=== PATIENT | female | born 2000 | race Caucasian/White ===

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

== ENCOUNTER 2018-06-04 23:12 | Emergency (ER) | payer OTHER ==
--- OUTSIDE RECORDS SUMMARY | 2018-06-04 23:14 | XMS REPORT ---
:2000 [facility] Address [address] [place] [address] Dr. Javier [address] [place] [id number] Care Team Providers Name Role Phone Unavailable Unavailable Unavailable Problems This patient has no known problems. Allergies, Adverse Reactions, Alerts This patient has no known allergies or adverse reactions. Medications This patient has no known medications.
--- OUTSIDE RECORDS SUMMARY | 2018-06-04 23:14 | XMS REPORT | Clinical Summary ---
:2000 Author Organization [employer] Address [address] [place] [id number] Care Team Providers Name Role Phone Asked, No Pcp Primary Care Provider Unavailable Allergies No Known Allergies Medications No known medications Active Problems Problem Noted Date Unspecified mood (affective) disorder 08/03/2016 Alcohol use disorder 08/03/2016 Cannabis use disorder, mild, abuse 08/03/2016 Family History Medical History Relation Name Comments [...] Assigned at Date Recorded Not on file Job Start Date Occupation Industry Not on file Not on file Not on file Travel History Travel Start Travel End No recent travel history available. Last Filed Vital Signs Not on file Plan of Treatment Not on file Results Not on fileafter 06/03/2017 Insurance Payer Benefit Plan / Group Subscriber ID Type Phone Address [employer] [facility] xxxxxxxxx HMO Advance Directives Patient has advance care planning documents on file. For more information, please contact:Vikas Vaughan[address] [place] [address]
[2018-06-05 00:17] LABS: Absolute Lymphocytes (CBC) 3.1 K/uL (0.7-4.9); Absolute Monocytes 0.8 K/uL (0.1-1.3); Absolute Neutrophil 5.8 K/uL (1.8-8.0); Basophils % 0.7 % (0-1.3); Eosinophils % 10.2 % (0-4.4); Hematocrit 34.2 % (36.0-45.0); Lymphocytes % 28.2 % (15.3-44.8); Monocytes % 7.3 % (3.3-12.3); RBC Red Blood Cell Count 4.27 M/uL (3.86-4.86)
[2018-06-05 00:33] LABS: ALT/SGPT 22 U/L (12-78); AST/SGOT 13 U/L (15-37); Albumin 3.6 g/dL (3.4-5.0); Alkaline Phosphatase 84 U/L (45-117); BUN Blood Urea Nitrogen 16 mg/dL (7-18); Bicarbonate 26 mmol/L (21-32); Bilirubin Direct < 0.1 mg/dL (0-0.2); Bilirubin Total 0.1 mg/dL (0.2-1.0); Glucose Level 111 mg/dL (74-106); Lipase 126 U/L (73-393); Protein, Total 7.3 g/dL (6.4-8.2); Sodium Level 143 mmol/L (136-145)
[2018-06-05 00:38] LABS: Urine Blood 3+ (NEG); Urine Glucose NEGATIVE (NEG); Urine Protein 3+ (NEG); Urine Specific Gravity >1.030 (1.005-1.030); Urine pH 5.5 (5.0-7.0)
--- NOTE | 2018-06-05 00:56 | ER ---
Nurse's Notes [facility] Name: Valencia Carballo Age: 18 yrs Sex: Female : 2000 Arrival Date: 06/04/2018 Time: 23:15 Bed 13 Private MD: Diagnosis: Urinary tract infection, site not specified Presentation: 06/04 23:38 Presenting complaint: Patient states: she thinks she has a UTI she has burning with bb urination, frequency, lower abdominal cramping, pt is breast feeding. Transition of care: patient was not received from another setting of care. Onset of symptoms was June 04, 2018. Risk Assessment: Do you want to hurt yourself or someone else? Patient reports no desire to harm self or others. Initial Sepsis Screen: Does the patient meet any 2 criteria? No. Patient's initial sepsis screen is negative. Does the patient have a suspected source of infection? No. Patient's initial sepsis screen is negative. Care prior to arrival: None. 23:38 Method Of Arrival: Ambulatory bb 23:38 Acuity: MARIBEL 3 bb Triage Assessment: 23:45 General: Appears in no apparent distress. uncomfortable, Behavior is calm, cooperative, cc3 appropriate for age. Pain: Complains of pain in lower abdomen, on urination Quality of pain is described as burning, on urination. EENT: No signs and/or symptoms were reported regarding the EENT system. Neuro: Level of Consciousness is awake, alert, obeys commands, Oriented to person, place, time, situation, Appropriate for age. Cardiovascular: Denies chest pain, Patient's skin is warm and dry. Respiratory: Airway is patent Respiratory effort is even, unlabored, Respiratory pattern is regular, symmetrical. GI: Abdomen is flat, non-distended. : Reports burning with urination, urinary frequency. Derm: No signs and/or symptoms reported regarding the dermatologic system. Musculoskeletal: Circulation, motion, and sensation intact. Range of motion: intact in all extremities. CSR: 23:44 LMP 06/04/2018 bb Historical: - Allergies: 23:44 No Known Allergies; bb - Home Meds: 23:44 Latuda oral oral [Active]; adarax [Active]; bb - PMHx: 23:44 Back pain; frequent UTI; bb - PSHx: 23:44 None; bb - Immunization history:: Adult Immunizations up to date. - Social history:: Smoking status: Patient uses tobacco products, vapes, Patient uses alcohol, occasionally. Patient/guardian denies using street drugs. - Ebola Screening: : No symptoms or risks identified at this time. Screenin:45 Abuse screen: Denies threats or abuse. Denies injuries from another. Nutritional cc3 screening: No deficits noted. Tuberculosis screening: No symptoms or risk factors identified. Fall Risk Ambulatory Aid- None/Bed Rest/Nurse Assist (0 pts). Gait- Normal/Bed Rest/Wheelchair (0 pts) Mental Status- Oriented to own ability (0 pts). Assessment: 23:45 GI: Bowel sounds present X 4 quads. Abd is soft and non tender X 4 quads. cc3 06/05 00:23 Reassessment: Patient appears in no apparent distress at this time. Patient and/or cc3 family updated on plan of care and expected duration. Pain level reassessed. Patient is alert, oriented x 3, equal unlabored respirations, skin warm/dry/pink. 01:05 Reassessment: Patient appears in no apparent distress at this time. Patient and/or cc3 family updated on plan of care and expected duration. Pain level reassessed. Patient is alert, oriented x 3, equal unlabored respirations, skin warm/dry/pink. CHAPINCITO Metcalf discharged the patient home with prescription given. IV cannula removed and patient left ER vitally stable and ambulatory with her family. Vital Signs: 06/04 23:44 BP 123 / 75; Pulse 94; Resp 16 S; Temp 97.6(A); Pulse Ox 94% on R/A; Weight 62.14 kg bb (R); Height 5 ft. 4 in. (162.56 cm) (R); Pain 8/10; 06/05 00:15 BP 115 / 79; Pulse 93; Resp 19 S; Pulse Ox 99% on R/A; cc3 00:50 BP 118 / 73; Pulse 95; Resp 18 S; Pulse Ox 99% on R/A; cc3 06/04 23:44 Body Mass Index 23.52 (62.14 kg, 162.56 cm) bb ED Course: 06/04 23:15 Patient arrived in ED. ds1 23:29 Jordan Metcalf PA is PHCP. jmm 23:29 Bubba Osorio MD is Attending Physician. [facility] 23:40 Triage completed. bb 23:44 Arm band placed on Patient placed in an exam room, on a stretcher, on pulse oximetry. bb Family accompanied patient. 23:45 Veronica Woo is Primary Nurse. cc3 23:45 Patient has correct armband on for positive identification. Bed in low position. Call cc3 light in reach. Side rails up X 1. Pulse ox on. NIBP on. 23:50 Inserted saline lock: 20 gauge in right antecubital area, using aseptic technique. cc3 Blood collected. inserted by technical programs manager Elizabeth. [id number] 01:05 No provider procedures requiring assistance completed. IV discontinued, intact, cc3 bleeding controlled, No redness/swelling at site. Pressure dressing applied. Administered Medications: No medications were administered Outcome: 00:56 Discharge ordered by MD. [facility] 01:05 Discharged to home ambulatory, with family. cc3 01:05 Condition: stable 01:05 Discharge instructions given to patient, family, Instructed on discharge instructions, follow up and referral plans. medication usage, Demonstrated understanding of instructions, follow-up care, medications, Prescriptions given X 2. 01:11 Patient left the ED. cc3 Signatures: Jordan Metcalf PA PA jmm Sanford, Demi ds1 Niesha Mccollum, NA RN Veronica Philip cc3
--- NOTE | 2018-06-05 00:57 | EDPHYS ---
Physician Documentation [facility] Name: Valencia Carballo Age: 18 yrs Sex: Female : 2000 Arrival Date: 06/04/2018 Time: 23:15 Bed 13 Private MD: ED Physician Bubba Osorio HPI: 06/04 23:36 This 18 yrs old Female presents to ER via Unassigned with complaints of jmm Abdominal Pain. 23:36 The patient presents with abdominal pain suprapubic. Onset: The symptoms/episode jmm began/occurred gradually, 2 day(s) ago. Associated signs and symptoms: Pertinent positives: dysuria. The symptoms are described as achy. This is a 18 year old female with no chronic medical conditions that presents to the ED with complaints of 2 days of suprapubic abdominal pain. Painful urination. Patient denies vomiting or diarrhea. Denies vaginal discharge. States she has increased urinary frequency. . 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 - Social history:: Smoking status: Patient uses tobacco products, vapes, Patient uses alcohol, occasionally. Patient/guardian denies using street drugs. - Ebola Screening: : No symptoms or risks identified at this time. ROS: 06/05 00:53 Constitutional: Negative for fever, chills, and weight loss, Cardiovascular: Negative jmm for chest pain, palpitations, and edema, Respiratory: Negative for shortness of breath, cough, wheezing, and pleuritic chest pain. Abdomen/GI: Positive for abdominal pain, nausea, vomiting. : Positive for urinary symptoms. Neuro: Negative for weakness. All other systems are negative. Exam: 00:53 Constitutional: This is a well developed, well nourished patient who is awake, alert, jmm and in no acute distress. Head/Face: atraumatic. Eyes: EOMI, no conjunctival erythema appreciated ENT: Moist Mucus Membranes Neck: Trachea midline, Supple Chest/axilla: Normal chest wall appearance and motion. Cardiovascular: Regular rate and rhythm. No edema appreciated Respiratory: Normal respirations, no respiratory distress appreciated 00:53 Abdomen/GI: Inspection: abdomen appears normal, Bowel sounds: normal, Palpation: soft, mild abdominal tenderness, in the suprapubic area, voluntary guarding, is not appreciated, involuntary guarding, is not appreciated, Indicators: McBurney's point is not tender. 00:53 Back: ROM is normal, CVA tenderness, is absent. 00:53 Musculoskeletal/extremity: ROM: intact in all extremities. 00:53 Skin: Appearance: Color: normal in color. 00:53 Neuro: Orientation: is normal, Mentation: is normal, Memory: is normal. 00:53 Psych: Behavior/mood is pleasant, cooperative. Vital Signs: 06/04 23:44 BP 123 / 75; Pulse 94; Resp 16 S; Temp 97.6(A); Pulse Ox 94% on R/A; Weight 62.14 kg bb (R); Height 5 ft. 4 in. (162.56 cm) (R); Pain 8/10; 06/05 00:15 BP 115 / 79; Pulse 93; Resp 19 S; Pulse Ox 99% on R/A; cc3 00:50 BP 118 / 73; Pulse 95; Resp 18 S; Pulse Ox 99% on R/A; cc3 06/04 23:44 Body Mass Index 23.52 (62.14 kg, 162.56 cm) bb MDM: 06/04 23:35 Patient medically screened. [facility] 06/05 00:55 Data reviewed: vital signs, nurses notes. Counseling: I had a detailed discussion with [facility] the patient and/or guardian regarding: the historical points, exam findings, and any diagnostic results supporting the discharge/admit diagnosis, lab results, the need for outpatient follow up, to return to the emergency department if symptoms worsen or persist or if there are any questions or concerns that arise at home. ED course: Symptoms appear consistent with UTI. Patient has no guarding or rebound. I do not suspect pelvic infection. Patient given early appendicitis return precautions. Patient understood and agrees with the plan of care. . 06/04 23:36 Order name: Basic Metabolic Panel [facility] 06/04 23:36 Order name: CBC with Diff; Complete Time: 00:40 [facility] 06/04 23:36 Order name: Creatinine for Radiology; Complete Time: 00:40 [facility] 06/04 23:36 Order name: Hepatic Function [facility] 06/04 23:36 Order name: Lipase [facility] 06/04 23:36 Order name: Basic Metabolic Panel; Complete Time: 00:40 [facility] 06/04 23:36 Order name: IV Saline Lock; Complete Time: 00:18 [facility] 06/04 23:36 Order name: Labs collected and sent; Complete Time: 00:18 [facility] 06/04 23:36 Order name: Urine Dipstick-Ancillary (obtain specimen); Complete Time: 00:11 [facility] 06/04 23:36 Order name: Urine Test (obtain specimen); Complete Time: 00:11 [facility] 06/04 23:36 Order name: Liver (Hepatic) Function; Complete Time: 00:40 [facility] 06/04 23:36 Order name: Lipase; Complete Time: 00:40 [facility] 06/05 00:10 Order name: Urine Dipstick--Ancillary (enter results) 2 06/05 00:10 Order name: Urine --Ancillary (enter results) [facility] Administered Medications: No medications were administered Disposition: 05:10 Co-signature as Attending Physician, Bubba Osorio MD Available for consultation at [facility] all times. . Disposition: 06/05/18 00:56 Discharged to Home. Impression: Urinary tract infection, site not specified. - Condition is Stable. - Discharge Instructions: Urinary Tract Infection, Adult. - Prescriptions for Ibuprofen 800 mg Oral Tablet - take 1 tablet by ORAL route every 8 hours As needed take with food; 30 tablet. Macrobid 100 mg Oral Capsule - take 1 capsule by ORAL route every 12 hours for 7 days; 14 capsule. - Medication Reconciliation Form, Thank You Letter, Antibiotic Education, Prescription Opioid Use form. - Follow up: Private Physician; When: 2 - 3 days; Reason: Recheck today's complaints, Continuance of care, Re-evaluation by your physician. Signatures: Dispatcher [facility] Jordan Metcalf PA PA jmm Ballard, Brenda, RN RN Bubba Collier MD MD ps1 Veronica Woo cc3 Corrections: (The following items were deleted from the chart) 00:53 06/04 23:36 This is a 18 year old female with no chronic medical conditions that ginger presents to the ED with complaints of 2 days of suprapubic abdominal pain. Painful urination. Patient denies vomiting or diarrhea. . ginger 06/05 01:11 00:56 06/05/2018 00:56 Discharged to Home. Impression: Urinary tract infection, site cc3 not specified. Condition is Stable. Forms are Medication Reconciliation Form, Thank You Letter, Antibiotic Education, Prescription Opioid Use. Follow up: Private Physician; When: 2 - 3 days; Reason: Recheck today's complaints, Continuance of care, Re-evaluation by your physician. ginger
== END 2018-06-05 01:11 | disposition home or self-care (01) ==
LOC: ER 23:12
DX: N39.0 Urinary tract infection, site not specified (principal); Z72.0 Tobacco use
CPT/HCPCS: 36415; 80048; 80076; 81003; 81025; 83690; 85025; 99284

== ENCOUNTER 2018-07-18 08:12 | Emergency (ER) | payer OTHER ==
--- OUTSIDE RECORDS SUMMARY | 2018-07-18 08:15 | XMS REPORT | Clinical Summary ---
:2000 Author Organization [employer] [facility] Address [address] [place] [id number] Care Team Providers Name Role Phone Asked, [...] Not on file Results Not on fileafter 07/17/2017 Insurance Payer Benefit Plan / Group Subscriber ID Type Phone Address [employer] [facility] xxxxxxxxx HMO Advance Directives Patient has advance care planning documents on file. For more information, please contact:Vikas [address]an[address] [place] [address]
--- OUTSIDE RECORDS SUMMARY | 2018-07-18 08:15 | XMS REPORT ---
:2000 Author Organization [facility] Address [address] [place] [address] Care Team Providers Name Role Phone Unavailable Unavailable Unavailable Problems This patient has no known problems. Allergies, Adverse Reactions, Alerts This patient has no known allergies or adverse reactions. Medications This patient has no known medications.
[2018-07-18] MEDS ORDERED: NA CHLORIDE 0.9% 1,000 ML ONE (08:47)
--- NOTE | 2018-07-18 08:56 | RAD REPORT ---
EXAM DESCRIPTION: CT - Head C Spine Mpr Wo Con - 07/18/2018 8:39 am CLINICAL HISTORY: Syncope. Head and neck injury status post fall. Head and neck pain COMPARISON: None. TECHNIQUE: Computed axial tomography of the head and cervical spine was obtained. Sagittal and coronal reconstruction was performed. All CT scans are performed using dose optimization technique as appropriate and may include automated exposure control or mA/KV adjustment according to patient size. FINDINGS: An intracranial bleed is not seen. The ventricles are normal in caliber. An extra-axial fl uid collection is not noted.Fluid within the visualized sinuses and mastoids is not seen A cervical fracture is not visualized. No dislocation is noted. IMPRESSION: No acute intracranial abnormality is seen. A cervical fracture is not visualized. If the patient continues to have symptoms to suggest intracra nial /spinal cord pathology then MRI would be recommended
[2018-07-18] MEDS ORDERED: PROMETHAZINE 25 MG/ML VIAL ONE (09:07)
[2018-07-18 09:14] LABS: Urine Blood 1+ (NEG); Urine Glucose NEGATIVE (NEG); Urine Protein 1+ (NEG); Urine Specific Gravity 1.025 (1.005-1.030); Urine pH 5.5 (5.0-7.0)
[2018-07-18 09:15] LABS: Urine Bacteria >50 /HPF (<20); Urine Culture Reflex Order NOT NEEDED; Urine Mucus MOD /HPF (NONE SEEN)
[2018-07-18 09:18] LABS: Barbiturates NEGATIVE (NEGATIVE); Benzodiazepines NEGATIVE (NEGATIVE); Cocaine NEGATIVE (NEGATIVE); METHAMPHETAM NEGATIVE (NEGATIVE); Methadone NEGATIVE (NEGATIVE); Opiates NEGATIVE (NEGATIVE); Phencyclidine NEGATIVE (NEGATIVE); THC Cannibis POSITIVE (NEGATIVE)
[2018-07-18 09:28] LABS: Absolute Lymphocytes (CBC) 2.3 K/uL (0.7-4.9); Absolute Monocytes 0.6 K/uL (0.1-1.3); Absolute Neutrophil 3.3 K/uL (1.8-8.0); Basophils % 0.9 % (0-1.3); Hematocrit 39.2 % (36.0-45.0); Lymphocytes % 34.5 % (15.3-44.8); MPV 9.6 fL (7.6-11.3); Monocytes % 8.9 % (3.3-12.3); RBC Red Blood Cell Count 4.85 M/uL (3.86-4.86)
[2018-07-18 09:53] LABS: BUN Blood Urea Nitrogen 17 mg/dL (7-18); Bicarbonate 25 mmol/L (21-32); Glucose Level 93 mg/dL (74-106); Potassium 3.7 mmol/L (3.5-5.1); Sodium Level 139 mmol/L (136-145)
--- NOTE | 2018-07-18 10:48 | EDPHYS ---
Physician Documentation [facility] Name: Valencia Carballo Age: 18 yrs Sex: Female : 2000 Arrival Date: 07/18/2018 Time: 08:16 Bed 14 Private MD: ED Physician Aleksey Elizabeth HPI: 07/18 10:41 This 18 yrs old Female presents to ER via Ambulatory with complaints of snw Nausea, Dizziness. 10:41 The patient presents to the emergency department with nausea, vomiting. The patient snw presents to the emergency department with diarrhea. Onset: The symptoms/episode began/occurred suddenly. Onset: The symptoms/episode began/occurred 2 day(s) ago. Possible causes: unknown. The symptoms are aggravated by nothing. Associated signs and symptoms: Pertinent positives: syncope. Severity of symptoms: At their worst the symptoms were moderate in the emergency department the symptoms have resolved. It is unknown whether or not the patient has had similar symptoms in the past. It is unknown whether or not the patient has recently seen a physician. Pt states she tripped and fell striking posterior neck this week. No problems afterward until yesterday. Pt with NVD with syncope x 3 episodes in the past 24 hours.. 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 - Social history:: Smoking status: Patient uses tobacco products, Patient uses alcohol, occasionally. - Ebola Screening: : Patient negative for fever greater than or equal to 101.5 degrees Fahrenheit, and additional compatible Ebola Virus Disease symptoms Patient denies exposure to infectious person Patient denies travel to an Ebola-affected area in the 21 days before illness onset. ROS: 08:47 Constitutional: Negative for fever, chills, and weight loss, Eyes: Negative for injury, snw pain, redness, and discharge, ENT: Negative for injury, pain, and discharge, Neck: Negative for injury, pain, and swelling, Cardiovascular: Negative for chest pain, palpitations, and edema, Respiratory: Negative for shortness of breath, cough, wheezing, and pleuritic chest pain, Abdomen/GI: Negative for abdominal pain and constipation, + N/V/D Back: Negative for injury and pain, : Negative for injury, bleeding, discharge, and swelling, MS/Extremity: Negative for injury and deformity, Skin: Negative for injury, rash, and discoloration. 08:47 Neuro: Positive for dizziness, syncope, pt states three episodes of syncope in two days. Tripped 3-4 days ago and struck occiput/neck. Denies LOC at the time of incident.. Exam: 08:47 Constitutional: This is a well developed, well nourished patient who is awake, alert, snw and in no acute distress. Head/Face: Normocephalic, atraumatic. Eyes: Pupils equal round and reactive to light, extra-ocular motions intact. Lids and lashes normal. Conjunctiva and sclera are non-icteric and not injected. Cornea within normal limits. Periorbital areas with no swelling, redness, or edema. ENT: Nares patent. No nasal discharge, no septal abnormalities noted. Tympanic membranes are normal and external auditory canals are clear. Oropharynx with no redness, swelling, or masses, exudates, or evidence of obstruction, uvula midline. Mucous membranes moist. Neck: Trachea midline, no thyromegaly or masses palpated, and no cervical lymphadenopathy. Supple, full range of motion without nuchal rigidity, or vertebral point tenderness. No Meningismus. Chest/axilla: Normal chest wall appearance and motion. Nontender with no deformity. No lesions are appreciated. Cardiovascular: Regular rate and rhythm with a normal S1 and S2. No gallops, murmurs, or rubs. Normal PMI, no JVD. No pulse deficits. Respiratory: Lungs have equal breath sounds bilaterally, clear to auscultation and percussion. No rales, rhonchi or wheezes noted. No increased work of breathing, no retractions or nasal flaring. Abdomen/GI: Soft, non-tender, with normal bowel sounds. No distension or tympany. No guarding or rebound. No evidence of tenderness throughout. Back: No spinal tenderness. No costovertebral tenderness. Full range of motion. Skin: Warm, dry with normal turgor. Normal color with no rashes, no lesions, and no evidence of cellulitis. MS/ Extremity: Pulses equal, no cyanosis. Neurovascular intact. Full, normal range of motion. Neuro: Awake and alert, GCS 15, oriented to person, place, time, and situation. Cranial nerves II-XII grossly intact. Motor strength 5/5 in all extremities. Sensory grossly intact. Cerebellar exam normal. Normal gait. Psych: Awake, alert, with orientation to person, place and time. Behavior, mood, and affect are within normal limits. Vital Signs: 08:31 BP 107 / 72; Pulse 89; Resp 18; Temp 97.4(TE); Pulse Ox 97% on R/A; Weight 58.97 kg; hj Height 5 ft. 4 in. (162.56 cm); Pain 7/10; 10:31 BP 107 / 75 LA Supine; Pulse 78; Resp 16 S; Pulse Ox 100% on R/A; rv 10:33 BP 110 / 80 LA Sitting; Pulse 80; Resp 18; Pulse Ox 100% on R/A; rv 10:35 BP 113 / 80 LA Standing; Pulse 81; Resp 17 S; Pulse Ox 100% on R/A; rv 08:31 Body Mass Index 22.31 (58.97 kg, 162.56 cm) hj MDM: 08:17 Patient medically screened. snw 11:04 Data reviewed: vital signs, nurses notes. Data interpreted: Pulse oximetry: on room air snw is 100 %. Interpretation: normal. Counseling: I had a detailed discussion with the patient and/or guardian regarding: the historical points, exam findings, and any diagnostic results supporting the discharge/admit diagnosis, the presence of at least one elevated blood pressure reading (>120/80) during this emergency department visit, lab results, radiology results, the need for outpatient follow up, to return to the emergency department if symptoms worsen or persist or if there are any questions or concerns that arise at home. Special discussion: I have referred the patient to see his PCP for further evaluation of high blood pressure. Based on the patient's history, exam and DX evaluation, there is no indication for emergent intervention or inpatient [place]. It is understood by the patient/guardian that if the SXs persist or worsen they need to return immediately for re-evaluation. Based on the history and exam findings, there is no indication for further emergent testing or inpatient evaluation. I discussed with the patient/guardian the need to see the primary care provider for further evaluation of the symptoms. 07/18 08:17 Order name: Urine Microscopic Only; Complete Time: 09:45 snw 07/18 08:24 Order name: UDS; Complete Time: 09:45 snw 07/18 08:24 Order name: Abo[employer]rh Typing snw 07/18 08:24 Order name: Basic Metabolic Panel; Complete Time: 09:55 snw 07/18 08:24 Order name: CBC with Diff; Complete Time: 09:45 snw 07/18 08:50 Order name: Urine Dipstick--Ancillary (enter results); Complete Time: 09:45 em1 07/18 08:17 Order name: Urine Test (obtain specimen); Complete Time: 08:49 snw 07/18 08:17 Order name: Urine Dipstick-Ancillary (obtain specimen); Complete Time: 08:49 snw 07/18 08:24 Order name: CT Head C Spine; Complete Time: 08:56 snw 07/18 08:24 Order name: IV Saline Lock; Complete Time: 09:00 snw 07/18 08:24 Order name: Labs collected and sent; Complete Time: 09:00 snw 07/18 08:50 Order name: Urine --Ancillary (enter results); Complete Time: 09:45 em1 07/18 08:24 Order name: NPO; Complete Time: 08:25 snw 07/18 10:17 Order name: Misc. Order: please collect another clean catch for culture with snw instruction on collection; Complete Time: 10:40 07/18 10:17 Order name: Orthostatics; Complete Time: 10:39 snw Administered Medications: 08:59 Drug: NS 0.9% 1000 ml Route: IV; Rate: 75 ml/hr; Site: right wrist; hj 11:00 Follow up: IV Status: Completed infusion; IV Intake: 200ml rv 10:57 Drug: Augmentin 875 mg Route: PO; rv 11:01 Follow up: Response: Medication administered at discharge. rv Disposition: 12:11 Co-signature as Attending Physician, Aleksey Elizabeth MD I agree with the assessment and kdr plan of care. Disposition: 07/18/18 10:47 Discharged to Home. Impression: Syncope and collapse, Urinary tract infection, site not specified. - Condition is Stable. - Discharge Instructions: Syncope, Urinary Tract Infection, Adult, Rehydration, Adult. - Prescriptions for Augmentin 875- 125 mg Oral Tablet - take 1 tablet by ORAL route every 12 hours for 10 days; 20 tablet. - Work release form, Medication Reconciliation Form, Thank You Letter, Antibiotic Education, Prescription Opioid Use, Family Work Release form. - Follow up: Emergency Department; When: As needed; Reason: Worsening of condition. Follow up: Private Physician; When: 2 - 3 days; Reason: Recheck today's complaints, Continuance of care, Re-evaluation by your physician. Signatures: Dispatcher [employer] EDMS Aleksey Elizabeth MD MD [facility] Calista Ku, PROTOTYPE SEWER-C PROTOTYPE SEWER-Csnw Balwinder Holder, RN RN hj Manoj Chow, RN RN rv Corrections: (The following items were deleted from the chart) 11:16 10:47 07/18/2018 10:47 Discharged to Home. Impression: Syncope and collapse; Urinary rv tract infection, site not specified. Condition is Stable. Forms are Medication Reconciliation Form, Thank You Letter, Antibiotic Education, Prescription Opioid Use. Follow up: Emergency Department; When: As needed; Reason: Worsening of condition. Follow up: Private Physician; When: 2 - 3 days; Reason: Recheck today's complaints, Continuance of care, Re-evaluation by your physician. snw
--- NOTE | 2018-07-18 10:48 | ER ---
Nurse's Notes [facility] Name: Valencia Carballo Age: 18 yrs Sex: Female : 2000 Arrival Date: 07/18/2018 Time: 08:16 Bed 14 Private MD: Diagnosis: Syncope and collapse;Urinary tract infection, site not specified Presentation: 07/18 08:26 Presenting complaint: Patient states: i passed out twice yesterday, this morning i hj almost passed out too; 2 days ago, i fell and hit the back of my head, denies LOC, since then i had this headaches and felt nauseous and vomited; i couldn't hold anything down, headache pain is 7/10; reports diarrhea;. Transition of care: patient was not received from another setting of care. Onset of symptoms was July 18, 2018. Risk Assessment: Do you want to hurt yourself or someone else? Patient reports no desire to harm self or others. Initial Sepsis Screen: Does the patient meet any 2 criteria? Yes Does the patient have a suspected source of infection? No. Patient's initial sepsis screen is negative. Care prior to arrival: None. 08:26 Method Of Arrival: Ambulatory 08:26 Acuity: MARIBEL 3 hj Triage Assessment: 08:30 General: Appears in no apparent distress. uncomfortable, Behavior is calm, cooperative, hj appropriate for age. Pain: Complains of pain in head. GI: Reports nausea, vomiting. 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 - Social history:: Smoking status: Patient uses tobacco products, Patient uses alcohol, occasionally. - Ebola Screening: : Patient negative for fever greater than or equal to 101.5 degrees Fahrenheit, and additional compatible Ebola Virus Disease symptoms Patient denies exposure to infectious person Patient denies travel to an Ebola-affected area in the 21 days before illness onset. Screenin:30 Abuse screen: Denies threats or abuse. Denies injuries from another. Nutritional hj screening: No deficits noted. Tuberculosis screening: No symptoms or risk factors identified. Fall Risk None identified. Assessment: 08:31 GI: Abdomen is non-distended. Vital Signs: 08:31 BP 107 / 72; Pulse 89; Resp 18; Temp 97.4(TE); Pulse Ox 97% on R/A; Weight 58.97 kg; hj Height 5 ft. 4 in. (162.56 cm); Pain 7/10; 10:31 BP 107 / 75 LA Supine; Pulse 78; Resp 16 S; Pulse Ox 100% on R/A; rv 10:33 BP 110 / 80 LA Sitting; Pulse 80; Resp 18; Pulse Ox 100% on R/A; rv 10:35 BP 113 / 80 LA Standing; Pulse 81; Resp 17 S; Pulse Ox 100% on R/A; rv 08:31 Body Mass Index 22.31 (58.97 kg, 162.56 cm) ED Course: 08:16 Patient arrived in ED. mr 08:17 Calista Ku FNP-C [facility]. snw 08:17 Aleksey Elizabeth MD is Attending Physician. snw 08:25 Balwinder Holder, NA is Primary Nurse. hj 08:29 Triage completed. hj 08:30 Arm band placed on right wrist. hj 08:31 Patient has correct armband on for positive identification. Placed in gown. Bed in low hj position. Call light in reach. Side rails up X 1. Adult w/ patient. 08:40 CT Head C Spine In Process Unspecified. EDMS 08:40 Urine collected: clean catch specimen, earl colored. dh3 09:07 Initial lab(s) drawn, by tn, sent to lab. Inserted saline lock: 22 gauge in right dh3 wrist, using aseptic technique. Blood collected. 09:10 Missed attempt(s): 22 gauge in right antecubital area. Bleeding controlled, band aid dh3 applied, catheter tip intact. 10:28 Manoj Chow, NA is Primary Nurse. rv 11:14 No provider procedures requiring assistance completed. IV discontinued, intact, rv bleeding controlled, No redness/swelling at site. Pressure dressing applied. Administered Medications: 08:59 Drug: NS 0.9% 1000 ml Route: IV; Rate: 75 ml/hr; Site: right wrist; hj 11:00 Follow up: IV Status: Completed infusion; IV Intake: 200ml rv 10:57 Drug: Augmentin 875 mg Route: PO; rv 11:01 Follow up: Response: Medication administered at discharge. rv Intake: 11:00 IV: 200ml; Total: 200ml. rv Outcome: 10:47 Discharge ordered by . ami 11:14 Discharged to home ambulatory. rv 11:14 Condition: good 11:14 Discharge instructions given to patient, family, Instructed on discharge instructions, follow up and referral plans. medication usage, Demonstrated understanding of instructions, follow-up care, medications, Prescriptions given X 1. 11:16 Patient left the ED. rv Signatures: Dispatcher [employer] EDMS Calista Ku, OVERHEAD CRANE INSPECTOR-C OVERHEAD CRANE INSPECTOR-Csnw Nayeli Salcedo Henry, RN Corie May [facility] Manoj Chow, NA RN rv
[2018-07-18] MEDS ORDERED: AMOX/K CLAV 875 MG TAB ONE (10:58)
--- NOTE | 2018-07-19 10:18 | EKG ---
Test Date: 2018-07-18 Test Time: 10:51:59 Woods Boss: TRISTIAN/S MEASUREMENT RESULTS: Intervals: Rate: 79 OR: 128 QRSD: 84 QT: 378 QTc: 433 [place]: P: 41 OR: 128 QRS: 86 T: 59 INTERPRETIVE STATEMENTS: Normal sinus rhythm Normal ECG Compared to ECG 07/08/2014 00:22:23 Sinus tachycardia no longer present Electronically Signed On 07-19-18 10:16:30 CDT by Dane Hunt
== END 2018-07-18 11:16 | disposition home or self-care (01) ==
LOC: ER 08:12
DX: N39.0 Urinary tract infection, site not specified (principal); W01.0XXA Fall on same level from slipping, tripping and stumbling without subsequent striking against object, initial encounter; Y93.9 Activity, unspecified; Y92.9 Unspecified place or not applicable; Z72.0 Tobacco use
CPT/HCPCS: 36415; 70450; 72125; 80048; 80307; 81003; 81015; 81025; 85025; 86900; 86901; 93005; 96360; 96361; 99284; J2550; J7030

== ENCOUNTER 2018-09-29 13:02 | Emergency (ER) | payer OTHER ==
--- OUTSIDE RECORDS SUMMARY | 2018-09-29 13:06 | XMS REPORT | Clinical Summary ---
:2000 Author Organization [facility] Address [address] [place] [id number] Care Team Providers Name Role Phone Asked, [...] Not on file Results Not on fileafter 09/28/2017 Insurance Payer Benefit Plan / Subscriber ID Effective Dates Phone Address Type Group [facility] xxxxxxxxx 2016-Present HMO CHOICE [facility] Advance Directives Patient has advance care planning documents on file. For more information, please contact:Vikas Vaughan[address] [place] [address]
--- OUTSIDE RECORDS SUMMARY | 2018-09-29 13:06 | XMS REPORT ---
:2000 [facility] [address] [place] [address] [address] [place] [address] Care Team Providers Name Role Phone Unavailable Unavailable Unavailable Problems This patient has no known problems. Allergies, Adverse Reactions, Alerts This patient has no known allergies or adverse reactions. Medications This patient has no known medications.
--- NOTE | 2018-09-29 14:28 | RAD REPORT ---
EXAM DESCRIPTION: US - Transvaginal OB - 09/29/2018 2:11 pm CLINICAL HISTORY: , pelvic pain COMPARISON: None. FINDINGS: A normal shaped intrauterine gestational sac is identified. Yolk sac and pole are pr esent. Cardiac activity is seen at a rate of 171 BPM. [place]-rump length measurement corresponds to a 7 week 3 day age. Calculated ADILIA is 05/15/2019 A small sub centimeter subchorionic hemorrhage is present not considered significant. No blood or flu id in the cul de sac. Both ovaries are identified and normal in size. No suspicious ovarian or adnexal finding. IMPRESSION: Single 7 week 3 day IUP with heart rate 171 BPM. Small sub centimeter subchorionic hemorrhage is present not considered significant at that size. No ovarian or adnexal abnormality.
--- NOTE | 2018-09-29 14:29 | RAD REPORT ---
EXAM DESCRIPTION: RAD - Chest Single View - 09/29/2018 2:24 pm CLINICAL HISTORY: Chest pain COMPARISON: None. TECHNIQUE: AP portable chest image was obtained 1335 hours. Wraparound shielding of the abdomen and pelvis utilized. . FINDINGS: Lungs are clear. Heart and vasculature are normal. No measurable pleural effusion and no p neumothorax. No acute bony abnormality seen. No acute aortic findings suspected. IMPRESSION: No acute cardiopulmonary process.
[2018-09-29 14:31] LABS: Urine Blood NEGATIVE (NEG); Urine Glucose NEGATIVE (NEG); Urine Protein 1+ (NEG); Urine Specific Gravity 1.025 (1.005-1.030)
[2018-09-29 14:38] LABS: Urine Bacteria >50 /HPF (<20); Urine RBC NONE SEEN /HPF (NONE SEEN)
[2018-09-29 14:39] LABS: Urine Culture Reflex Order NOT NEEDED
[2018-09-29 14:52] LABS: Absolute Lymphocytes (CBC) 1.9 K/uL (0.7-4.9); Basophils % 0.3 % (0-1.3); Eosinophils % 4.1 % (0-4.4); Hematocrit 36.9 % (36.0-45.0); Lymphocytes % 17.6 % (15.3-44.8); MPV 9.5 fL (7.6-11.3); Monocytes % 5.7 % (3.3-12.3); RBC Red Blood Cell Count 4.51 M/uL (3.86-4.86)
[2018-09-29] MEDS ORDERED: PROMETHAZINE 25 MG/ML VIAL ONE (15:10)
[2018-09-29] MEDS ORDERED: FAMOTIDINE 20 MG/2 ML VIAL IV ONE (15:10)
[2018-09-29 15:16] LABS: ALT/SGPT 17 U/L (12-78); AST/SGOT 10 U/L (15-37); Albumin 3.9 g/dL (3.4-5.0); Alkaline Phosphatase 59 U/L (45-117); BUN Blood Urea Nitrogen 11 mg/dL (7-18); Bicarbonate 26 mmol/L (21-32); Bilirubin Direct < 0.1 mg/dL (0-0.2); Bilirubin Total 0.2 mg/dL (0.2-1.0); Glucose Level 89 mg/dL (74-106); Magnesium 2.1 mg/dL (1.8-2.4); Potassium 3.8 mmol/L (3.5-5.1); Protein, Total 7.9 g/dL (6.4-8.2); Sodium Level 141 mmol/L (136-145); Troponin (Emerg Dept Use Only) < 0.02 ng/mL (0.0-0.045)
--- NOTE | 2018-09-29 15:36 | EDPHYS ---
Physician Documentation [facility] Name: Valencia Craballo Age: 18 yrs Sex: Female : 2000 Arrival Date: 09/29/2018 Time: 13:04 Bed 20 Private MD: ED Physician Pancho Khan HPI: 09/29 15:22 This 18 yrs old Female presents to ER via Ambulatory with complaints of wa Vomiting, Chest Pain. 15:22 The patient presents to the emergency department with nausea, vomiting, chest pain. wa Onset: The symptoms/episode began/occurred 2 week(s) ago. Possible causes: early preg. The symptoms are aggravated by nothing. The symptoms are alleviated by nothing. Associated signs and symptoms: Pertinent positives: nausea, vomiting, Pertinent negatives: abdominal pain, diarrhea, dysuria. Severity of symptoms: At their worst the symptoms were moderate in the emergency department the symptoms have improved. The patient has experienced a previous episode, with her last . The patient has not recently seen a physician. 18 yo F, 7 weeks preg. states has been having N?V for the past 2 weeks similar to her hyperemesis during last . today, noted symptoms to be assoc with mid-sternal chest pressure. denies painful urination, frequency, fever or chills. . 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 - Social history:: The patient lives with family, Smoking status: Patient/guardian denies using tobacco. - Family history:: not pertinent. - Ebola Screening: : No symptoms or risks identified at this time. - Hospitalizations: : No recent hospitalization is reported. ROS: 15:27 Constitutional: Negative for fever, chills, and weight loss, Eyes: Negative for injury, wa pain, redness, and discharge, ENT: Negative for injury, pain, and discharge, Neck: Negative for injury, pain, and swelling, Respiratory: Negative for shortness of breath, cough, wheezing, and pleuritic chest pain, Back: Negative for injury and pain, : Negative for injury, bleeding, discharge, and swelling, MS/Extremity: Negative for injury and deformity, Skin: Negative for injury, rash, and discoloration, Neuro: Negative for headache, weakness, numbness, tingling, and seizure. 15:27 Cardiovascular: Positive for chest pain, Negative for edema, orthopnea, palpitations, paroxysmal nocturnal dyspnea. 15:27 Abdomen/GI: Positive for nausea, vomiting, Negative for abdominal pain, diarrhea. 15:27 All other systems are negative. Exam: 15:28 Constitutional: This is a well developed, well nourished patient who is awake, alert, wa and in no acute distress. Head/Face: Normocephalic, atraumatic. Eyes: Pupils equal round and reactive to light, extra-ocular motions intact. Lids and lashes normal. Conjunctiva and sclera are non-icteric and not injected. Cornea within normal limits. Periorbital areas with no swelling, redness, or edema. ENT: Nares patent. No nasal discharge, no septal abnormalities noted. Tympanic membranes are normal and external auditory canals are clear. Oropharynx with no redness, swelling, or masses, exudates, or evidence of obstruction, uvula midline. Mucous membranes moist. Neck: Trachea midline, no thyromegaly or masses palpated, and no cervical lymphadenopathy. Supple, full range of motion without nuchal rigidity, or vertebral point tenderness. No Meningismus. Chest/axilla: Normal chest wall appearance and motion. Nontender with no deformity. No lesions are appreciated. Back: No spinal tenderness. No costovertebral tenderness. Full range of motion. Skin: Warm, dry with normal turgor. Normal color with no rashes, no lesions, and no evidence of cellulitis. MS/ Extremity: Pulses equal, no cyanosis. Neurovascular intact. Full, normal range of motion. Neuro: Awake and alert, GCS 15, oriented to person, place, time, and situation. Cranial nerves II-XII grossly intact. Motor strength 5/5 in all extremities. Sensory grossly intact. Cerebellar exam normal. Normal gait. Psych: Awake, alert, with orientation to person, place and time. Behavior, mood, and affect are within normal limits. 15:28 Cardiovascular: Rate: normal, Rhythm: regular, Pulses: no pulse deficits are appreciated, Heart sounds: normal, Edema: is not appreciated, JVD: is not appreciated. 15:28 Abdomen/GI: Inspection: abdomen appears normal, Bowel sounds: normal, Palpation: soft, in all quadrants, nontender. Vital Signs: 13:11 BP 113 / 65; Pulse 88; Resp 18; Temp 98.1(O); Pulse Ox 99% on R/A; Weight 63.5 kg; hj Height 5 ft. 3 in. (160.02 cm); Pain 4/10; 13:11 Body Mass Index 24.80 (63.50 kg, 160.02 cm) hj MDM: 13:21 Patient medically screened. 15:29 Differential diagnosis: gastritis, hyperemesis. chest pain. consider dyspepsia. r/o wa mediastinal air from esophageal tear. will check EKG, CXR, labs, reassess. Data reviewed: vital signs, nurses notes. Test interpretation: by ED physician or midlevel provider: labs noted >50 bacterial in clean catch urine. UD shows 7 weeks 3 days IUP with HR 171. nml CXR. EKG HR 104. sinus tach. . Response to treatment: the patient's symptoms have markedly improved after treatment. 09/29 13:35 Order name: Basic Metabolic Panel; Complete Time: 15:21 09/29 13:35 Order name: CBC with Diff; Complete Time: 15:11 ut 09/29 13:35 Order name: LFT's; Complete Time: 15:21 09/29 13:35 Order name: Magnesium; Complete Time: 15:21 09/29 13:35 Order name: Troponin (emerg Dept Use Only); Complete Time: 15:21 09/29 13:36 Order name: Urine Microscopic Only; Complete Time: 15:11 ut 09/29 13:35 Order name: XRAY Chest (1 view); Complete Time: 15:12 ut 09/29 13:35 Order name: EKG; Complete Time: 13:37 ut 09/29 13:37 Order name: US Transvaginal Ob; Complete Time: 15:12 09/29 14:25 Order name: Urine Dipstick--Ancillary (enter results); Complete Time: 15:12 09/29 14:25 Order name: Urine --Ancillary (enter results); Complete Time: 15:11 09/29 13:35 Order name: Cardiac monitoring; Complete Time: 13:53 ut 09/29 13:35 Order name: EKG - Nurse/Tech; Complete Time: 13:41 ut 09/29 13:35 Order name: IV Saline Lock; Complete Time: 15:01 ut 09/29 13:35 Order name: Labs collected and sent; Complete Time: 15:01 ut 09/29 13:35 Order name: O2 Sat Monitoring; Complete Time: 13:52 ut 09/29 13:36 Order name: Urine Dipstick-Ancillary (obtain specimen); Complete Time: 14:19 ut Administered Medications: 15:00 Drug: Promethazine 12.5 mg Route: IVP; Site: right antecubital; bp 16:34 Follow up: Response: Nausea is decreased bp 15:00 Drug: Pepcid 20 mg Route: IVP; Site: right antecubital; bp 15:57 Follow up: Response: No adverse reaction bp 15:57 Drug: Rocephin - (cefTRIAXone) 1 grams Route: IVPB; Infused Over: 30 mins; Site: right bp antecubital; 16:34 Follow up: IV Status: Completed infusion; IV Intake: 50ml bp Disposition: 09/29/18 15:34 Discharged to Home. Impression: Hyperemesis in Early , Chest pain, unspecified. - Condition is Stable. - Discharge Instructions: Nausea and Vomiting, Adult, [id number], Nonspecific Chest Pain, [id number]. - Prescriptions for promethazine 12.5 mg Oral tablet - take 1 tablet by ORAL route every 4 hours; 20 tablet. - Medication Reconciliation Form, Thank You Letter, Antibiotic Education, Prescription Opioid Use form. - Follow up: Juan Pichardo MD; When: 2 - 3 days; Reason: Recheck today's complaints. - Problem is new. - Symptoms have improved. - Notes: follow up with your OB. take tylenol if in pain. return to ER for any worsening concerns Signatures: Dispatcher [employer] EDMS Balwinder Holder, RN RN Pancho Khan MD MD wa Peltier, Brian, RN RN bp Corrections: (The following items were deleted from the chart) 16:39 15:34 09/29/2018 15:34 Discharged to Home. Impression: Hyperemesis in Early ; bp Chest pain, unspecified. Condition is Stable. Forms are Medication Reconciliation Form, Thank You Letter, Antibiotic Education, Prescription Opioid Use. Follow up: Juan Pichardo; When: 2 - 3 days; Reason: Recheck today's complaints. Problem is new. Symptoms have improved. wa
--- NOTE | 2018-09-29 15:36 | ER ---
Nurse's Notes [facility] Name: Valecnia Carballo Age: 18 yrs Sex: Female : 2000 Arrival Date: 09/29/2018 Time: 13:04 Bed 20 Private MD: Diagnosis: Hyperemesis in Early ;Chest pain, unspecified Presentation: 09/29 13:09 Presenting complaint: Patient states: LMP- 08/05/18; "im and im nauseous for hj about 2 weeks now and this chest pain/tightness start ed today". Transition of care: patient was not received from another setting of care. Onset of symptoms was September 29, 2018. Risk Assessment: Do you want to hurt yourself or someone else? Patient reports no desire to harm self or others. Initial Sepsis Screen: Does the patient meet any 2 criteria? No. Patient's initial sepsis screen is negative. Does the patient have a suspected source of infection? No. Patient's initial sepsis screen is negative. Care prior to arrival: None. 13:09 Method Of Arrival: Ambulatory 13:09 Acuity: MARIBEL 3 Triage Assessment: 13:15 General: Appears in no apparent distress. comfortable, Behavior is cooperative, bp appropriate for age, anxious. Pain: Denies pain. EENT: No deficits noted. Neuro: No deficits noted. Cardiovascular: No deficits noted. Respiratory: No deficits noted. GI: Reports nausea, vomiting. : No signs and/or symptoms were reported regarding the genitourinary system. Derm: No deficits noted. Musculoskeletal: No deficits noted. 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 - Social history:: The patient lives with family, Smoking status: Patient/guardian denies using tobacco. - Family history:: not pertinent. - Ebola Screening: : No symptoms or risks identified at this time. - Hospitalizations: : No recent hospitalization is reported. Screenin:15 Abuse screen: Denies threats or abuse. Denies injuries from another. Nutritional bp screening: No deficits noted. Tuberculosis screening: No symptoms or risk factors identified. Fall Risk None identified. Assessment: 13:15 General: SEE TRIAGE NOTE. GI: Abdomen is non-distended. bp 15:00 Reassessment: U/S PENDING. VS STABLE. NO ACTIVE VOMITING. bp 16:37 Reassessment: PT D/C HOME AMBULATORY WITH FAMILY, DX WITH HYPEREMESIS IN EARLY bp . Vital Signs: 13:11 BP 113 / 65; Pulse 88; Resp 18; Temp 98.1(O); Pulse Ox 99% on R/A; Weight 63.5 kg; hj Height 5 ft. 3 in. (160.02 cm); Pain 4/10; 13:11 Body Mass Index 24.80 (63.50 kg, 160.02 cm) hj ED Course: 13:04 Patient arrived in ED. mr 13:11 Triage completed. hj 13:11 Arm band placed on right wrist. hj 13:14 EKG done, by business technology analyst. reviewed by Pancho Khan MD. at1 13:15 Patient has correct armband on for positive identification. Bed in low position. Call bp light in reach. Side rails up X2. Adult w/ patient. 13:15 No provider procedures requiring assistance completed. bp 13:19 Vincent Naidu, RN is Primary Nurse. bp 13:22 Pancho Khan MD is Attending Physician. wa 14:11 US Transvaginal Ob In Process Unspecified. EDMS 14:24 XRAY Chest (1 view) In Process Unspecified. EDMS 14:45 Inserted saline lock: 22 gauge in right antecubital area, using aseptic technique. ss Blood collected. 15:34 Juan Pichardo MD is Referral Physician. wa 16:38 IV discontinued, intact, bleeding controlled, No redness/swelling at site. Pressure bp dressing applied. Administered Medications: 15:00 Drug: Promethazine 12.5 mg Route: IVP; Site: right antecubital; bp 16:34 Follow up: Response: Nausea is decreased bp 15:00 Drug: Pepcid 20 mg Route: IVP; Site: right antecubital; bp 15:57 Follow up: Response: No adverse reaction bp 15:57 Drug: Rocephin - (cefTRIAXone) 1 grams Route: IVPB; Infused Over: 30 mins; Site: right bp antecubital; 16:34 Follow up: IV Status: Completed infusion; IV Intake: 50ml bp Intake: 16:34 IV: 50ml; Total: 50ml. bp Outcome: 15:34 Discharge ordered by . maged 16:38 Discharged to home ambulatory, with family. bp 16:38 Condition: stable 16:38 Discharge instructions given to patient, Instructed on discharge instructions, follow up and referral plans. medication usage, Demonstrated understanding of instructions, follow-up care, medications, Prescriptions given X 1. 16:39 Patient left the ED. bp Signatures: Dispatcher [employer] [facility] Nayeli SalcedoDaniela, RN RN Janina Morales, hotel attendant EKG Tat1 Balwinder Holder RN RN Pancho Khan MD MD wa Peltier, Brian RN RN bp Corrections: (The following items were deleted from the chart) 13:12 13:09 Presenting complaint: Patient states: LMP- 08/05/18; "im and im nauseous hj for about 2 weeks now and this chest pain start today" hj 13:13 13:11 63.5 kg; Height 5 ft. 3 in.; BMI: 24.8; Pain 4/10; hj hj 13:13 13:11 Pulse 88bpm; Resp 18bpm; Pulse Ox 99% RA; Temp 98.1F Oral; 63.5 kg; Height 5 ft. hj 3 in.; BMI: 24.8; Pain 4/10; hj
[2018-09-29] MEDS ORDERED: CEFTRIAXONE 1000 MG/VIAL ONE (16:06)
[2018-09-29] MEDS ORDERED: NA CHLORIDE 0.9% 100 ML IV ONE (16:06)
--- NOTE | 2018-09-29 19:41 | EKG ---
Test Date: 2018-09-29 Test Time: 13:11:23 Student Truck Driver: TRISTIAN MEASUREMENT RESULTS: Intervals: Rate: 104 MS: 130 QRSD: 80 QT: 330 QTc: 433 [place]: P: 54 MS: 130 QRS: 76 T: 23 INTERPRETIVE STATEMENTS: Sinus tachycardia Otherwise normal ECG Compared to ECG 07/18/2018 10:51:59 Sinus rhythm no longer present Electronically Signed On 09-29-18 19:40:22 CDT by Dane Hunt
== END 2018-09-29 16:39 | disposition home or self-care (01) ==
LOC: ER 13:02
DX: O21.9 Vomiting of pregnancy, unspecified (principal); R07.9 Chest pain, unspecified; Z3A.01 Less than 8 weeks gestation of pregnancy
CPT/HCPCS: 36415; 71045; 76817; 80048; 80076; 81003; 81015; 81025; 83735; 84484; 85025; 93005; 96365; 96375; 99284; J2550

== ENCOUNTER 2019-02-16 01:33 | Emergency (ER) | payer OTHER ==
--- OUTSIDE RECORDS SUMMARY | 2019-02-16 01:37 | XMS REPORT ---
:2000 [facility] [address] [place] [address] Care Team Providers Name Role Phone Unavailable Unavailable Unavailable Problems This patient has no known problems. Allergies, Adverse Reactions, Alerts This patient has no known allergies or adverse reactions. Medications This patient has no known medications.
[2019-02-16] MEDS ORDERED: NA CHLORIDE 0.9% 1,000 ML ONE (02:15)
[2019-02-16 02:20] LABS: Urine Blood NEGATIVE (NEG); Urine Glucose NEGATIVE (NEG); Urine Protein TRACE (NEG); Urine Specific Gravity >1.030 (1.005-1.030); Urine pH 6.5 (5.0-7.0)
[2019-02-16 02:21] LABS: Absolute Lymphocytes (CBC) 1.6 K/uL (0.7-4.9); Basophils % 0.5 % (0-1.3); Hematocrit 31.7 % (36.0-45.0); MPV 8.9 fL (7.6-11.3); RBC Red Blood Cell Count 4.27 M/uL (3.86-4.86)
[2019-02-16 02:26] LABS: Urine Bacteria >50 /HPF (<20); Urine Culture Reflex Order NOT NEEDED; Urine Mucus HEAVY /HPF (NONE SEEN); Urine RBC NONE SEEN /HPF (NONE SEEN)
[2019-02-16 02:34] LABS: BUN Blood Urea Nitrogen 9 mg/dL (7-18); Bicarbonate 27 mmol/L (21-32); Glucose Level 87 mg/dL (74-106); Potassium 3.2 mmol/L (3.5-5.1); Sodium Level 136 mmol/L (136-145)
[2019-02-16] MEDS ORDERED: Ringers Lactate 1,000 ML IV ONE (03:22)
--- NOTE | 2019-02-16 03:53 | EDPHYS ---
Physician Documentation [facility] Name: Valencia Carballo Age: 19 yrs Sex: Female : 2000 Arrival Date: 02/16/2019 Time: 01:35 Bed 7 Private MD: ED Physician Gallito Cutler HPI: 02/16 02:18 This 19 yrs old Female presents to ER via Unassigned with complaints of snw Abdominal Pain, Vomiting - 27 Wks Preg. 02:18 The patient presents with abdominal pain in the lower abdomen. Onset: The snw symptoms/episode began/occurred gradually. The symptoms radiate to back. Associated signs and symptoms: Pertinent positives: nausea and vomiting. The symptoms are described as crampy, sharp, shooting. Severity of pain: At its worst the pain was moderate. The patient has experienced similar episodes in the past, multiple times. sees Dr. Pichardo - was evaluated in L\T\D, baby monitored and pt sent to ED. MANAGER HVAC: 02:00 Verified Historical: - Allergies: 02:54 No Known Allergies; - PMHx: 02:54 Back pain; frequent UTI; Bipolar disorder; - PSHx: 02:54 None; - Immunization history:: Adult Immunizations up to date. - Social history:: Smoking status: Patient/guardian denies using tobacco. - Ebola Screening: : Patient negative for fever greater than or equal to 101.5 degrees Fahrenheit, and additional compatible Ebola Virus Disease symptoms Patient denies exposure to infectious person. ROS: 02:18 Constitutional: Negative for fever, chills, and weight loss, Eyes: Negative for injury, snw pain, redness, and discharge, ENT: Negative for injury, pain, and discharge, Neck: Negative for injury, pain, and swelling, Cardiovascular: Negative for chest pain, palpitations, and edema, Respiratory: Negative for shortness of breath, cough, wheezing, and pleuritic chest pain, : Negative for injury, bleeding, discharge, and swelling, MS/Extremity: Negative for injury and deformity, Skin: Negative for injury, rash, and discoloration, Neuro: Negative for headache, weakness, numbness, tingling, and seizure, Psych: Negative for depression, anxiety, suicide ideation, homicidal ideation, and hallucinations. 02:18 Abdomen/GI: Positive for abdominal pain, nausea and vomiting. 02:18 Back: Positive for pain at rest, pain with movement, of the low back area. Exam: 02:22 Constitutional: This is a well developed, well nourished patient who is awake, alert, snw and in no acute distress. 02:22 Eyes: Pupils equal round and reactive to light, extra-ocular motions intact. Lids and lashes normal. Conjunctiva and sclera are non-icteric and not injected. Cornea within normal limits. Periorbital areas with no swelling, redness, or edema. ENT: Nares patent. No nasal discharge, no septal abnormalities noted. Tympanic membranes are normal and external auditory canals are clear. Oropharynx with no redness, swelling, or masses, exudates, or evidence of obstruction, uvula midline. Mucous membranes moist. Neck: Trachea midline, no thyromegaly or masses palpated, and no cervical lymphadenopathy. Supple, full range of motion without nuchal rigidity, or vertebral point tenderness. No Meningismus. Chest/axilla: Normal chest wall appearance and motion. Nontender with no deformity. No lesions are appreciated. Cardiovascular: Regular rate and rhythm with a normal S1 and S2. No gallops, murmurs, or rubs. Normal PMI, no JVD. No pulse deficits. Respiratory: Lungs have equal breath sounds bilaterally, clear to auscultation and percussion. No rales, rhonchi or wheezes noted. No increased work of breathing, no retractions or nasal flaring. Back: No spinal tenderness. No costovertebral tenderness. Full range of motion. Skin: Warm, dry with normal turgor. Normal color with no rashes, no lesions, and no evidence of cellulitis. MS/ Extremity: Pulses equal, no cyanosis. Neurovascular intact. Full, normal range of motion. Neuro: Awake and alert, GCS 15, oriented to person, place, time, and situation. Cranial nerves II-XII grossly intact. Motor strength 5/5 in all extremities. Sensory grossly intact. Cerebellar exam normal. Normal gait. Psych: Awake, alert, with orientation to person, place and time. Behavior, mood, and affect are within normal limits. 02:22 Head/face: Noted is contusion, that is superficial, of the forehead. 02:22 Abdomen/GI: Inspection: gravid appearance, is noted, Bowel sounds: normal, in all quadrants, Palpation: mild abdominal tenderness, in the suprapubic area. Vital Signs: 02:00 BP 94 / 61; Pulse 87; Resp 14; Temp 98.6(TE); Pulse Ox 100% on R/A; Pain 0/10; ss 03:30 BP 96 / 61; Pulse 85; Resp 18; Pulse Ox 100% on R/A; wh 05:15 BP 101 / 67; Pulse 98; Resp 16; Temp 98.5; Pulse Ox 10% ; ds4 MDM: 01:42 Patient medically screened. snw 02:23 Data reviewed: vital signs, nurses notes. Data interpreted: Pulse oximetry: on room air snw is 99 %. Interpretation: normal. Counseling: I had a detailed discussion with the patient and/or guardian regarding: the historical points, exam findings, and any diagnostic results supporting the discharge/admit diagnosis. 03:48 Response to treatment: the patient's symptoms have markedly improved after treatment, snw sleeping in no distress. 02/16 01:53 Order name: Flu; Complete Time: 02:45 snw 02/16 01:53 Order name: Urine Culture snw 02/16 01:53 Order name: Urine Microscopic Only; Complete Time: 02:27 snw 02/16 01:53 Order name: CBC with Diff; Complete Time: 02:25 snw 02/16 01:53 Order name: Chem 7; Complete Time: 02:45 snw 02/16 02:16 Order name: Urine Dipstick--Ancillary (enter results); Complete Time: 02:24 mw2 02/16 01:53 Order name: Urine Dipstick-Ancillary (obtain specimen); Complete Time: 02:21 snw 02/16 02:16 Order name: Urine --Ancillary (enter results); Complete Time: 02:24 mw2 Administered Medications: 02:23 Drug: NS 0.9% 1000 ml Route: IV; Rate: 1 bolus; Site: right antecubital; 03:29 Follow up: IV Status: Completed infusion; IV Intake: 1000ml 03:29 Drug: Lactated Ringers Solution 1000 ml Route: IV; Rate: 250 ml/hr; Site: right ss antecubital; 05:17 Follow up: Response: No adverse reaction; IV Status: Completed infusion 05:13 Drug: Macrobid 100 mg Route: PO; 05:13 Follow up: Response: No adverse reaction Disposition: 06:41 Co-signature as Attending Physician, Gallito Cutler MD. rn Disposition: 02/16/19 03:52 Discharged to Home. Impression: Urinary tract infection, site not specified, Nausea and vomiting, Dehydration, state. - Condition is Stable. - Discharge Instructions: Dehydration, Adult, Nausea and Vomiting, Adult, Rehydration, Pediatric, and Urinary Tract Infection. - Prescriptions for Macrobid 100 mg Oral Capsule - take 1 capsule by ORAL route every 12 hours for 10 days; 20 capsule. promethazine 25 mg Oral Tablet - take 1 tablet by ORAL route every 6 hours As needed; 20 tablet. - Work release form, Medication Reconciliation Form, Thank You Letter, Antibiotic Education, Prescription Opioid Use form. - Follow up: Private Physician; When: 1 - 2 days; Reason: Recheck today's complaints, Continuance of care, Re-evaluation by your physician. Follow up: Emergency Department; When: As needed; Reason: Worsening of condition. Signatures: Dispatcher [employer] EDMS Calista Ku, HEEL SEWER-C HEEL SEWER-Csnw Gallito Cutler MD MD rn Smirch, Shelby, RN RN ss Habalo, Winsy Corrections: (The following items were deleted from the chart) 05:17 03:52 02/16/2019 03:52 Discharged to Home. Impression: Urinary tract infection, site wh not specified; Nausea and vomiting; Dehydration; state. Condition is Stable. Discharge Instructions: Dehydration, Adult, Nausea and Vomiting, Adult, Rehydration, Pediatric, and Urinary Tract Infection. Prescriptions for Macrobid 100 mg Oral Capsule - take 1 capsule by ORAL route every 12 hours for 10 days; 20 capsule, promethazine 25 mg Oral Tablet - take 1 tablet by ORAL route every 6 hours As needed; 20 tablet. and Forms are Work release form, Medication Reconciliation Form, Thank You Letter, Antibiotic Education, Prescription Opioid Use. Follow up: Private Physician; When: 1 - 2 days; Reason: Recheck today's complaints, Continuance of care, Re-evaluation by your physician. Follow up: Emergency Department; When: As needed; Reason: Worsening of condition. snw
--- NOTE | 2019-02-16 03:53 | ER ---
Nurse's Notes [facility] Name: Valencia Carballo Age: 19 yrs Sex: Female : 2000 Arrival Date: 02/16/2019 Time: 01:35 Bed 7 Private MD: Diagnosis: Urinary tract infection, site not specified;Nausea and vomiting;Dehydration; state Presentation: 02/16 01:45 Presenting complaint: Patient states: Pt was already seen in Labor and Delivery for wh nausea, vomiting and diarrhea that started a few days ago. Pt was cleared [facility] [place] and was sent to ER for NVD. Transition of care: patient was not received from another setting of care. Onset of symptoms was February 16, 2019. Risk Assessment: Do you want to hurt yourself or someone else? Patient reports no desire to harm self or others. Initial Sepsis Screen: Does the patient meet any 2 criteria? No. Patient's initial sepsis screen is negative. Does the patient have a suspected source of infection? No. Patient's initial sepsis screen is negative. Care prior to arrival: Medication(s) given: Phenergan 50 mg IM and Lomotil 1 tab 25 mg PO from Labor and delivery. 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 - Social history:: Smoking status: Patient/guardian denies using tobacco. - Ebola Screening: : Patient negative for fever greater than or equal to 101.5 degrees Fahrenheit, and additional compatible Ebola Virus Disease symptoms Patient denies exposure to infectious person. Screenin:50 Abuse screen: Denies threats or abuse. Denies injuries from another. Nutritional screening: No deficits noted. Tuberculosis screening: No symptoms or risk factors identified. Fall Risk None identified. Assessment: 02:00 General: Appears in no apparent distress. Behavior is calm, cooperative, appropriate wh for age. Pain: Denies pain. Neuro: Level of Consciousness is awake, alert, obeys commands, Oriented to person, place, time, situation, Appropriate for age. Cardiovascular: Heart tones S1 S2. Respiratory: Airway is patent Respiratory effort is even, unlabored, Respiratory pattern is regular, symmetrical, Breath sounds are clear bilaterally. GI: Abdomen is round Bowel sounds present X 4 quads. Abd is soft Reports diarrhea, nausea, vomiting. : No signs and/or symptoms were reported regarding the genitourinary system. EENT: No signs and/or symptoms were reported regarding the EENT system. Derm: Skin is intact, is healthy with good turgor, Skin is pink, warm \T\ dry. normal. Musculoskeletal: Circulation, motion, and sensation intact. 03:15 Reassessment: Patient appears in no apparent distress at this time. No changes from previously documented assessment. Patient and/or family updated on plan of care and expected duration. Pain level reassessed. Patient is alert, oriented x 3, equal unlabored respirations, skin warm/dry/pink. 04:10 Reassessment: Patient appears in no apparent distress at this time. No changes from previously documented assessment. Patient and/or family updated on plan of care and expected duration. Pain level reassessed. Patient is alert, oriented x 3, equal unlabored respirations, skin warm/dry/pink. PT DC held MD wants to give her fluids first before discharging her. 05:15 Reassessment: Patient appears in no apparent distress at this time. No changes from previously documented assessment. Patient and/or family updated on plan of care and expected duration. Pain level reassessed. Patient is alert, oriented x 3, equal unlabored respirations, skin warm/dry/pink. Vital Signs: 02:00 BP 94 / 61; Pulse 87; Resp 14; Temp 98.6(TE); Pulse Ox 100% on R/A; Pain 0/10; ss 03:30 BP 96 / 61; Pulse 85; Resp 18; Pulse Ox 100% on R/A; wh 05:15 BP 101 / 67; Pulse 98; Resp 16; Temp 98.5; Pulse Ox 10% ; ds4 ED Course: 01:35 Patient arrived in ED. ds1 01:36 [facility]C [facility]. snw 01:36 Gallito Cutler MD is Attending Physician. snw 01:41 Evie Bell is Primary Nurse. wh 02:00 Arm band placed on left wrist. wh 02:00 Patient has correct armband on for positive identification. Bed in low position. Call light in reach. Side rails up X 1. Pulse ox on. NIBP on. 02:00 Inserted saline lock: 22 gauge in right antecubital area, using aseptic technique. Blood collected. 02:44 Triage completed. 05:15 No provider procedures requiring assistance completed. IV discontinued, intact, bleeding controlled, No redness/swelling at site. Administered Medications: 02:23 Drug: NS 0.9% 1000 ml Route: IV; Rate: 1 bolus; Site: right antecubital; 03:29 Follow up: IV Status: Completed infusion; IV Intake: 1000ml 03:29 Drug: Lactated Ringers Solution 1000 ml Route: IV; Rate: 250 ml/hr; Site: right ss antecubital; 05:17 Follow up: Response: No adverse reaction; IV Status: Completed infusion 05:13 Drug: Macrobid 100 mg Route: PO; 05:13 Follow up: Response: No adverse reaction Intake: 03:29 IV: 1000ml; Total: 1000ml. Outcome: 03:52 Discharge ordered by . snw 05:16 Discharged to home ambulatory. 05:16 Condition: stable 05:16 Discharge instructions given to patient, Instructed on discharge instructions, follow up and referral plans. medication usage, POC UTI in Demonstrated understanding of instructions, follow-up care, medications, POC Prescriptions given X 2. 05:17 Patient left the ED. Signatures: Calista Ku, MACHINE BILLER-C MACHINE BILLER-Csnw Barbara Finley ds1 Daniela Ram RN RN ss Sebastian Arias ds4 Evie Bell
[2019-02-16] MEDS ORDERED: NITROFURAN MACRO 100 MG CAP PO ONE (05:07)
[2019-02-16 05:27] VITALS: BP 101/67; TEMP 98.5; O2SAT 10
== END 2019-02-16 05:17 | disposition home or self-care (01) ==
LOC: ER 01:33
DX: O23.42 Unspecified infection of urinary tract in pregnancy, second trimester (principal); E86.0 Dehydration; Z3A.27 27 weeks gestation of pregnancy
CPT/HCPCS: 96361; 87088; 85025; 87086; 80048; 36415; 81025; 87804 ×2; 96360; 99284; J7120; J7030; 81003; 81015

== ENCOUNTER 2019-10-02 01:45 | Emergency (ER) | payer OTHER ==
--- OUTSIDE RECORDS SUMMARY | 2019-10-02 01:47 | XMS REPORT | Continuity of Care Document ---
:[address] [facility] t Address [address] [place] [address] Care Team Providers Name Role Phone Nurse, [facility] Attending Clinician Unavailable James BAZAN Attending Clinician Dora Oakley Main Attending Clinician Unavailable Abraham BAZAN Attending Clinician Problems This patient has no known problems. Allergies, Adverse Reactions, Alerts This patient has no known allergies or adverse reactions. Medications This patient has no known medications. Procedures This patient has no known procedures. Encounters Start End Encounter Admission Attending Care Care Encounter Source Date/Time Date/Time Type Type Clinicians Facility Department ID 2019-06-29 2019-06-29 Nurse Nurse, [facility] [id number] 10:37:44 11:21:35 Visit Janice Campbell [id number] [facility] [id number] Leyla [phone] [address] 2019-06-25 2019-06-25 Telemedici James [facility] [[email or web address]] [id number] 08:03:15 08:18:15 ne Visit Debra Campbell [id number] [place] [id number] Leyla [phone] [address] 2019-05-29 2019-05-29 Floor Space Allocator Marilia Oakley [facility] [[email or web address]] [id number] 14:50:07 15:05:07 Visit Lab Raghavendra Campbell [id number] [place] [id number] Professio [phone] [address] 2019-05-29 2019-05-29 Routine Ramirez, [facility] [[email or web address]] [id number] 13:32:16 14:40:02 Debra Adrian [id number] Visit [place] [id number] Professio [phone] nal [address] [facility] 2018-12-12 2018-12-12 Routine Abraham, [facility] [[email or web address]] [id number] 15:44:43 17:25:21 Poli Adrian [id number] Visit [place] [id number] Professio [phone] [facility] [address] [facility] Results This patient has no known results.
[2019-10-02] MEDS ORDERED: ONDANSETRON 4 MG/2 ML VIAL ONE (02:06)
[2019-10-02 02:31] LABS: Absolute Lymphocytes (CBC) 2.4 K/uL (0.7-4.9); Basophils % 0.5 % (0-1.3); Hematocrit 39.1 % (36.0-45.0); Lymphocytes % 23.1 % (15.3-44.8); RBC Red Blood Cell Count 4.34 M/uL (3.86-4.86)
[2019-10-02 03:06] LABS: ALT/SGPT 20 U/L (12-78); AST/SGOT 14 U/L (15-37); Albumin 4.1 g/dL (3.4-5.0); Alkaline Phosphatase 68 U/L (45-117); BUN Blood Urea Nitrogen 11 mg/dL (7-18); Bicarbonate 27 mmol/L (21-32); Bilirubin Direct < 0.1 mg/dL (0-0.2); Bilirubin Total 0.3 mg/dL (0.2-1.0); Glucose Level 105 mg/dL (74-106); Lipase 97 U/L (73-393); Protein, Total 8.3 g/dL (6.4-8.2); Sodium Level 140 mmol/L (136-145)
--- NOTE | 2019-10-02 04:36 | EDPHYS ---
Physician Documentation [facility] Name: Valencia Carballo Age: 19 yrs Sex: Female : 2000 Arrival Date: 10/02/2019 Time: 01:49 Bed 19 Private MD: ED Physician Irvin Lagunas HPI: 10/01 06:47 This 19 yrs old Female presents to ER via EMS with complaints of Nausea. tw4 06:47 The patient presents to the emergency department with nausea, that is mild. Onset: The tw4 symptoms/episode began/occurred today. Possible causes: unknown. The symptoms are aggravated by nothing. The symptoms are alleviated by nothing. Associated signs and symptoms: Pertinent positives: HEADACHE. Severity of symptoms: At their worst the symptoms were mild in the emergency department the symptoms are unchanged. The patient has not experienced similar symptoms in the past. 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 - Social history:: Smoking status: Patient denies any tobacco usage or history of. Patient uses alcohol, occasionally. ROS: 06:47 Constitutional: Negative for fever, chills, and weight loss, Eyes: Negative for injury, tw4 pain, redness, and discharge, Cardiovascular: Negative for chest pain, palpitations, and edema, Respiratory: Negative for shortness of breath, cough, wheezing, and pleuritic chest pain. 06:47 Back: Negative for injury and pain, MS/Extremity: Negative for injury and deformity, Skin: Negative for injury, rash, and discoloration. 06:47 Abdomen/GI: Positive for nausea, Negative for abdominal pain, nausea, vomiting, and diarrhea, vomiting, diarrhea, constipation, abdominal cramps, abdominal distension, anorexia, dysphagia, hematemesis, black/tarry stool, rectal pain, rectal bleeding. 06:47 Neuro: Positive for headache, Negative for altered mental status, dizziness, gait disturbance, loss of consciousness, numbness, seizure activity, speech changes, syncope, near syncope, tingling, tinnitus, tremor, visual changes. Exam: 06:47 Constitutional: This is a well developed, well nourished patient who is awake, alert, tw4 and in no acute distress. Head/Face: Normocephalic, atraumatic. Chest/axilla: Normal chest wall appearance and motion. Nontender with no deformity. No lesions are appreciated. Cardiovascular: Regular rate and rhythm with a normal S1 and S2. No gallops, murmurs, or rubs. Normal PMI, no JVD. No pulse deficits. Respiratory: Lungs have equal breath sounds bilaterally, clear to auscultation and percussion. No rales, rhonchi or wheezes noted. No increased work of breathing, no retractions or nasal flaring. Abdomen/GI: Soft, non-tender, with normal bowel sounds. No distension or tympany. No guarding or rebound. No evidence of tenderness throughout. Back: No spinal tenderness. No costovertebral tenderness. Full range of motion. MS/ Extremity: Pulses equal, no cyanosis. Neurovascular intact. Full, normal range of motion. Neuro: Awake and alert, GCS 15, oriented to person, place, time, and situation. Cranial nerves II-XII grossly intact. Motor strength 5/5 in all extremities. Sensory grossly intact. Cerebellar exam normal. Normal gait. Vital Signs: 01:41 BP 110 / 81; Pulse 92; Resp 18; Temp 97.7(O); Pulse Ox 98% on R/A; Weight 61.23 kg (R); fc Height 5 ft. 4 in. (162.56 cm) (R); Pain 0/10; 01:49 Weight 62.2 kg; mg2 03:30 BP 111 / 80; Pulse 90; Resp 18; Temp 97.8; Pulse Ox 100% on R/A; mg2 04:57 BP 112 / 85; Pulse 89; Resp 18; Temp 98; Pulse Ox 100% on R/A; mg2 01:41 Body Mass Index 23.17 (62.20 kg, 162.56 cm) fc MDM: 01:52 Patient medically screened. tw4 06:47 Differential diagnosis: Nonspecific abd pain, gastritis, cholecystitis, appendicitis. tw4 Data reviewed: vital signs, nurses notes. Data reviewed: lab test result(s), CBC, electrolytes, Flu: negative hepatic panel. Counseling: I had a detailed discussion with the patient and/or guardian regarding: the historical points, exam findings, and any diagnostic results supporting the discharge/admit diagnosis, lab results. Special discussion: I discussed with the patient/guardian in detail that at this point there is no indication for admission to the hospital. It is understood, however, that if the symptoms persist or worsen the patient needs to return immediately for re-evaluation. 10/01 01:52 Order name: Basic Metabolic Panel; Complete Time: 03:12 10/01 01:52 Order name: CBC with Diff; Complete Time: 03:03 10/01 04:34 Interpretation: Normal except: MCV 90.2; MCH 30.5. 10/01 01:52 Order name: Hepatic Function; Complete Time: 03:12 10/01 01:52 Order name: Lipase; Complete Time: 03:12 10/01 01:54 Order name: COVID-19 4 10/01 01:54 Order name: Flu; Complete Time: 04:33 10/01 04:34 Interpretation: Within normal limits. 10/01 01:52 Order name: IV Saline Lock; Complete Time: 02:27 10/01 01:52 Order name: Labs collected and sent; Complete Time: 02:27 10/01 01:54 Order name: Strep; Complete Time: 04:33 10/01 04:34 Interpretation: Within normal limits. 10/01 01:54 Order name: Document PUI#; Complete Time: 04:56 10/01 01:54 Order name: Droplet/Contact Precautions; Complete Time: 02:26 10/01 03:34 Order name: Throat Culture EDIA 10/01 01:54 Order name: O2 Per Protocol; Complete Time: 02:26 tw4 Administered Medications: 02:05 Drug: Zofran (Ondansetron) 4 mg Route: IVP; Site: right antecubital; mg2 03:47 Follow up: Response: No adverse reaction mg2 Disposition: 10/02/19 04:36 Discharged to Home. Impression: Nausea, VIRAL ILLNESS. - Condition is Stable. - Discharge Instructions: General Headache Without Cause, Nausea, Adult. - Prescriptions for Zofran 4 mg Oral Tablet - take 1 tablet by ORAL route every 12 hours As needed; 6 tablet. - Medication Reconciliation Form, Thank You Letter, Antibiotic Education, Prescription Opioid Use form. - Follow up: Private Physician; When: Upon discharge from the Emergency Department; Reason: Recheck today's complaints, Continuance of care, Re-evaluation by your physician. - Problem is new. - Symptoms have improved. Signatures: Dispatcher [employer] EDMS Calista Montero, CHRISTOPHER-C TAPPER BIT-Csnw Elena Lujan, RN RN Irvin Lagunas MD MD tw4 Alexey Cárdenas, NA RN mg2 Corrections: (The following items were deleted from the chart) 04:57 04:36 10/02/2019 04:36 Discharged to Home. Impression: Nausea; VIRAL ILLNESS. Condition mg2 is Stable. Forms are Medication Reconciliation Form, Thank You Letter, Antibiotic Education, Prescription Opioid Use. Follow up: Private Physician; When: Upon discharge from the Emergency Department; Reason: Recheck today's complaints, Continuance of care, Re-evaluation by your physician. Problem is new. Symptoms have improved. tw4
--- NOTE | 2019-10-02 04:36 | ER ---
Nurse's Notes [facility] Name: Valencia Carballo Age: 19 yrs Sex: Female : 2000 Arrival Date: 10/02/2019 Time: 01:49 Bed 19 Private MD: Diagnosis: Nausea;VIRAL ILLNESS Presentation: 10/01 01:41 Chief complaint: EMS states: that pt was having nausea and sharp pain to back of head fc that lasted 15-20 minutes and is gone now. Coronavirus screen: Proceed with normal triage. Ebola Screen: Patient negative for fever greater than or equal to 101.5 degrees Fahrenheit, and additional compatible Ebola Virus Disease symptoms Patient denies exposure to infectious person. Patient denies travel to an Ebola-affected area in the 21 days before illness onset. Initial Sepsis Screen: Does the patient meet any 2 criteria? HR > 90 bpm. No. Patient's initial sepsis screen is negative. Does the patient have a suspected source of infection? No. Patient's initial sepsis screen is negative. Risk Assessment: Do you want to hurt yourself or someone else? Patient reports no desire to harm self or others. Onset of symptoms. Care prior to arrival: None. Transition of care: patient was not received from another setting of care. 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 - Social history:: Smoking status: Patient denies any tobacco usage or history of. Patient uses alcohol, occasionally. Screenin:41 Abuse screen: Denies threats or abuse. Nutritional screening: No deficits noted. fc Tuberculosis screening: No symptoms or risk factors identified. Fall Risk None identified. Assessment: 01:51 General: Appears in no apparent distress. comfortable, Behavior is calm, cooperative. mg2 Pain: Denies pain. Neuro: Level of Consciousness is awake, alert, obeys commands, Oriented to person, place, time, situation. Neuro: Reports headache before but not at the moment. Cardiovascular: Capillary refill < 3 seconds Patient's skin is warm and dry. Respiratory: Airway is patent Respiratory effort is even, unlabored, Respiratory pattern is regular, symmetrical. GI: Abdomen is flat, Reports nausea. : No signs and/or symptoms were reported regarding the genitourinary system. EENT: No signs and/or symptoms were reported regarding the EENT system. Derm: Skin is intact, is healthy with good turgor, Skin is pink, warm \T\ dry. normal. Musculoskeletal: Circulation, motion, and sensation intact. Capillary refill < 3 seconds. 03:00 Reassessment: Patient appears in no apparent distress at this time. Patient and/or mg2 family updated on plan of care and expected duration. Pain level reassessed. Patient is alert, oriented x 3, equal unlabored respirations, skin warm/dry/pink. 04:12 Reassessment: Patient appears in no apparent distress at this time. Patient and/or mg2 family updated on plan of care and expected duration. Pain level reassessed. Patient is alert, oriented x 3, equal unlabored respirations, skin warm/dry/pink. Vital Signs: 01:41 BP 110 / 81; Pulse 92; Resp 18; Temp 97.7(O); Pulse Ox 98% on R/A; Weight 61.23 kg (R); Height 5 ft. 4 in. (162.56 cm) (R); Pain 0/10; 01:49 Weight 62.2 kg; mg2 03:30 BP 111 / 80; Pulse 90; Resp 18; Temp 97.8; Pulse Ox 100% on R/A; mg2 04:57 BP 112 / 85; Pulse 89; Resp 18; Temp 98; Pulse Ox 100% on R/A; mg2 01:41 Body Mass Index 23.17 (62.20 kg, 162.56 cm) ED Course: 01:41 Arm band placed on Patient placed in an exam room, on a stretcher. fc 01:49 Patient arrived in ED. fc 01:49 Alexey Cárdenas RN is Primary Nurse. mg2 01:52 Irvin Lagunas MD is Attending Physician. tw4 01:52 Triage completed. fc 01:52 Patient has correct armband on for positive identification. Door closed. Warm blanket mg2 given. 02:05 Inserted saline lock: 20 gauge in right antecubital area, using aseptic technique. mg2 Blood collected. 02:27 No provider procedures requiring assistance completed. mg2 04:56 IV discontinued, intact, bleeding controlled, No redness/swelling at site. Pressure mg2 dressing applied. Administered Medications: 02:05 Drug: Zofran (Ondansetron) 4 mg Route: IVP; Site: right antecubital; mg2 03:47 Follow up: Response: No adverse reaction mg2 Outcome: 04:36 Discharge ordered by tw4 04:57 Discharged to home ambulatory. mg2 04:57 Condition: stable 04:57 Discharge instructions given to patient, Instructed on discharge instructions, follow up and referral plans. medication usage, Demonstrated understanding of instructions, follow-up care, medications, Prescriptions given X 1. 04:57 Patient left the ED. mg2 Addendum: 10/07/2019 14:45 Addendum: COVID-19 Result: Negative result given to RN to notify pt. Contacted by: bea Khan RN. Notified pt of negative COVID 19 swab results. Pt advised that even with a negative test result they should remain in isolation until symptom free for 3 days without medication. Pt also advised to return to the ED for worsening symptoms. Signatures: Dayana Khan, NA RN dm5 Elena Lujan RN RN Irvin Lagunas MD MD tw4 Alexey Cárdenas RN RN mg2
[2019-10-02 05:19] VITALS: O2SAT 100
[2019-10-02 05:20] VITALS: BP 112/85; TEMP 98
== END 2019-10-02 04:57 | disposition home or self-care (01) ==
LOC: ER 01:45
DX: B34.9 Viral infection, unspecified (principal); Z20.828 Contact with and (suspected) exposure to other viral communicable diseases; F31.9 Bipolar disorder, unspecified; Z91.018 Allergy to other foods
CPT/HCPCS: 87070; 85025; 80048; 36415; 80076; 87081; 83690; 87804 ×2; 96374; 99284; U0002; J2405